=== PATIENT | female | born 1990 | race African-American/Black ===

== ENCOUNTER 2019-09-17 23:11 | Emergency (ER) | payer OTHER, SELFPAY ==
--- NOTE | 2019-09-17 23:37 | RAD ---
RADIOGRAPH CHEST 2 VIEWS: DATE: 09/17/2019 HISTORY: 29-year-old female with dyspnea and chest pain FINDINGS: The lungs are clear. The cardiomediastinal silhouette and hilar shadows appear normal. There is no pl eural effusion or pneumothorax. No osseous abnormality is identified. IMPRESSION: Normal
[2019-09-17] MEDS ORDERED: Amlodipine 5 MG TAB ONE (23:42)
[2019-09-17] MEDS ORDERED: hydrOXYzine 25 MG TAB ONE (23:42)
== END 2019-09-18 00:59 | disposition home or self-care (01) ==
LOC: ERS 23:11
DX: R07.9 Chest pain, unspecified (principal); I10 Essential (primary) hypertension; J45.909 Unspecified asthma, uncomplicated; F41.9 Anxiety disorder, unspecified; F32.9 Major depressive disorder, single episode, unspecified; Z79.899 Other long term (current) drug therapy
CPT/HCPCS: 71046; 93005; 94760

== ENCOUNTER 2019-11-22 06:26 | Emergency (ER) | payer OTHER ==
[2019-11-22 15:24] LABS: SARS-CoV-2 MS2 Positive; SARS-CoV-2 N Gene Negative; SARS-CoV-2 S Gene Negative; SARS-CoV-2 orf1ab Negative
== END 2019-11-22 06:57 | disposition home or self-care (01) ==
LOC: ERS 06:26
DX: R50.9 Fever, unspecified (principal); R05 Cough; Z20.828 Contact with and (suspected) exposure to other viral communicable diseases; I10 Essential (primary) hypertension; J45.909 Unspecified asthma, uncomplicated; F41.9 Anxiety disorder, unspecified; F32.9 Major depressive disorder, single episode, unspecified; Z79.899 Other long term (current) drug therapy
CPT/HCPCS: 87635; 99283; U0003

== ENCOUNTER 2021-09-24 23:55 | Emergency (ER) | payer BC ==
[2021-09-24] MEDS ORDERED: Magnesium 2 GM/50 ML BAG (IN WATER) ONE (23:58)
[2021-09-25] MEDS ORDERED: Albuterol Sulfate 2.5 mg/3 ml Neb ONE (00:06)
[2021-09-25] MEDS ORDERED: Ondansetron PF 4 MG/2 ML Vial ONE (01:39)
== END 2021-09-25 02:43 | disposition home or self-care (01) ==
LOC: ERS 23:55
DX: J45.909 Unspecified asthma, uncomplicated (principal); E66.9 Obesity, unspecified; I10 Essential (primary) hypertension
CPT/HCPCS: 71045; 94640; 96365; 96375; J2405; J3475; J7611

== ENCOUNTER 2025-05-17 13:18 | Outpatient (CLI) | payer BC | END 2025-05-17 13:19 | disposition home or self-care (01) | LOC: ULT 13:18 | PROVIDERS: ATTEND Physician Assistant | DX: E05.90 Thyrotoxicosis, unspecified without thyrotoxic crisis or storm (principal); E04.1 Nontoxic single thyroid nodule | CPT/HCPCS: 76536 ==